=== PATIENT | female | born 1955 | race Caucasian/White ===

== ENCOUNTER 2024-05-20 08:56 | Outpatient (CLI) | payer MEDICARE, OTHER | END 2024-05-20 08:57 | disposition home or self-care (01) | LOC: CSHMAMMO 08:56 | PROVIDERS: ATTEND Family Medicine | DX: Z12.31 Encounter for screening mammogram for malignant neoplasm of breast (principal); Z13.820 Encounter for screening for osteoporosis; Z78.0 Asymptomatic menopausal state; M85.89 Other specified disorders of bone density and structure, multiple sites | CPT/HCPCS: 77063; 77067; 77080 ==

== ENCOUNTER 2025-11-08 10:05 | Outpatient (CLI) | payer MEDICARE, OTHER | END 2025-11-08 10:06 | disposition home or self-care (01) | LOC: CSHCT 10:05 | PROVIDERS: ATTEND Orthopaedic Surgery Hand Surgery | DX: S52.514A Nondisplaced fracture of right radial styloid process, initial encounter for closed fracture (principal); S52.501A Unspecified fracture of the lower end of right radius, initial encounter for closed fracture ==